=== PATIENT | male | born 1975 | race Caucasian/White ===

== ENCOUNTER 2023-04-12 02:11 | Emergency (ER) | payer OTHER, SELFPAY ==
[2023-04-12 02:12] VITALS: PULSE 74
[2023-04-12 02:16] VITALS: BP 155/84; PULSE 74; RESP 18; TEMP 36.8; O2SAT 99; BMI 33.5
--- NOTE | 2023-04-12 02:33 | CRLHL7_ITS ---
For Patients: As a result of the Century Cures Act, medical imaging exams and procedure reports are released immediately into your electronic medical record. You may view this report before your referring provider. If you have questions, please contact your health care provider. INDICATION: Posttraumatic swelling TECHNIQUE: Ultrasound venous duplex lower right extremity. Compression venous exam was performed using tapia-scale, color Doppler, and spectral Doppler analysis. COMPARISON: None. FINDINGS: Deep veins: Sonographic imaging demonstrates the right common femoral, deep femoral, superficial femoral, popliteal, posterior tibial and the contralateral left common femoral veins to be fully compressible with normal color Doppler blood flow. Superficial veins: Greater saphenous vein is fully compressible. No popliteal cyst. Medial right calf heterogenous superficial soft tissue collection without increased blood flow on color Doppler, most compatible hematoma, measuring 7.3 x 1.1 x 5 1 cm. This correlates with location patient was struck by softball. IMPRESSION: No sign of deep venous thrombosis. Right medial calf superficial soft tissue hematoma, as above. Dictated by Jeffery Soto MD @ 04/12/2023 4:28:04 AM (Electronically Signed)
[2023-04-12 03:54] VITALS: BP 148/87; PULSE 70; RESP 18; TEMP 36.8; O2SAT 99
[2023-04-12 03:55] VITALS: BP 148/87; PULSE 70; RESP 18; TEMP 36.8
--- NOTE | 2023-04-14 15:34 | ED_ITS ---
HPI - General Adult General Chief complaint: Extremity Pain/Injury, Lower Stated complaint: Got hit with softball last thursday R calf Time Seen by Provider: 04/12/23 02:12 History of Present Illness HPI narrative: CC: Right Calf Pain/Injury pt. got hit with softball about a week ago. some swelling noted. not on blood thiinners. 48-year-old man presenting to the emergency department with complaint of right calf pain and swelling all increasing along with bruising as well. Has concerns about a potential blood clot. Does not sound as though has been regularly elevating. Has continued to ambulate. No chest pain cough or shortness of breath. He was pitching and took batted ball off his lower leg. Has not been using compression. Related Data Home Medications Medication Instructions Recorded Confirmed No Known Home Medications 04/12/23 04/12/23 Allergies Allergy/AdvReac Type Severity Reaction Status Date / Time No Known Allergies Allergy Verified 04/12/23 02:18 Review of Systems Status of ROS: Reports: 6 or more systems reviewed and unremarkable except as noted in History and below [facility] Medical History Ulcerative colitis ?K51.90 - Ulcerative colitis, unspecified, without complications (ICD-10) Surgical History No significant past surgical history Social History Smoking Status: Never smoker Second hand tobacco smoke exposure: No How often do you have a drink containing alcohol: never How often do you have six or more drinks on one occasion: Never AUDIT-C Alcohol total score: 0 Non-prescribed substance use: denies use Exam Narrative: Exam Narrative: Pleasant. NAD. Breathing easily. Skin is warm and dry. Clearly with right lower extremity swelling and some pitting edema and generalized bruising that is extended down around the ankle as well. He is well-perfused peripherally. Tender to palpation in this area. Concentrated around the medial calf. Negative Homans though. Const: Documenting provider has reviewed patient's vital signs: yes Course Vital Signs Vital signs: Initial Vital Signs Pulse Rate 74 04/12/23 02:12 Vital Signs Pulse Rate 74 04/12/23 02:12 Temperature 98.2 F 04/12/23 03:55 Pulse Rate 70 04/12/23 03:55 Respiratory Rate 18 04/12/23 03:55 Blood Pressure 148/87 H 04/12/23 03:55 Pulse Oximetry 99 04/12/23 03:54 Oxygen Delivery Method Room Air 04/12/23 03:54 Medical Decision Making MDM Narrative Medical decision making narrative: I think there was primarily a mobilized hematoma at this point. Functionally well. I do not believe there is actually a deep venous thrombus here. I do not think it is though unreasonable to double check with ultrasound. I do not think there is a fracture here. Did discuss with commercial painter. Confirms absent DVT but with hematoma as expected. Dispensed Eagle wraps. See patient discharge plan. Discharge Plan Discharge Clinical Impression: Hematoma, Peripheral edema Patient Disposition: Home, Self-Care Condition: Stable Additional Instructions: I will call you if Radiology sees something else in the ultrasound that we needs discuss. Be sure to keep this leg nicely elevated at rest as discussed, at the level of your heart, a little above, if possible. Wear these Eagle wraps or other compression to help you more rapidly mobilize this fluid. Prescriptions: No Action No Known Home Medications Follow Up/Referrals: Provider,Not a Local [Primary Care Provider] - Stand Alone Forms: [employer] Info Instructions
== END 2023-04-12 03:55 | disposition home or self-care (01) ==
PROVIDERS: Emergency Provider Family Medicine
DX: S80.11XA Contusion of right lower leg, initial encounter (principal); R60.9 Edema, unspecified
CPT/HCPCS: 93971; 99284

== ENCOUNTER 2024-08-18 13:12 | Emergency (ER) | payer OTHER, SELFPAY ==
[2024-08-18 13:27] VITALS: BP 161/82; PULSE 90; RESP 18; TEMP 36.2; O2SAT 95; BMI 42.3
--- NOTE | 2024-08-18 13:46 | CRLHL7_ITS ---
For Patients: As a result of the Century Cures Act, medical imaging exams and procedure reports are released immediately into your electronic medical record. You may view this report before your referring provider. If you have questions, please contact your health care provider. INDICATION: Left lower quadrant pain COMPARISON: 12/18/2021 CT abdomen/pelvis TECHNIQUE: CT of the abdomen and pelvis with intravenous contrast (132 milliliters Isovue 370). FINDINGS: Lung bases: No pleural effusion. Liver: Smooth hepatic contour. No suspicious hepatic lesions are identified. Gallbladder and biliary tree: Cholelithiasis. Otherwise, unremarkable CT appearance of the gallbladder and biliary tree. Spleen: No splenomegaly. Pancreas: Normal. Adrenal glands: Normal. Kidneys and ureters: No hydroureteronephrosis. No suspicious renal lesions are identified. Bladder: Unremarkable CT appearance. Visualized reproductive organs: Unremarkable CT appearance. Gastrointestinal tract: Colonic diverticulosis. Focal colonic wall thickening and pericolonic fat stranding associated with a inflamed appearing diverticulum at the junction of the sigmoid and descending colon (2/122). No associated abscess. Peritoneal cavity: No free fluid or free air. Mild fat stranding within the central mesenteric fat is similar since at least as far back as 05/12/2020 and compatible with mesenteric panniculitis. Lymph nodes: No enlarged abdominal or pelvic lymph nodes by CT size criteria. Vessels: No abdominal aortic aneurysm. Mild aortic calcification. Abdominal and pelvic wall: Normal. Bones: There are osseous degenerative changes. Multiple old left-sided rib fractures. Chronic mild anterior vertebral body wedging in the inferior and mid thoracic spine. IMPRESSION: 1. Acute uncomplicated diverticulitis at the junction of the sigmoid and descending colon. 2. Several additional chronic and incidental findings are detailed above. Please note that all CT scans at this facility use dose modulation, iterative reconstruction, and/or weight-based dosing when appropriate to reduce radiation dose to as low as reasonably achievable. Dictated by Frank Kumar MD @ 08/18/2024 3:36:32 PM (Electronically Signed)
--- NOTE | 2024-08-18 14:15 | ED_ITS ---
HPI - Abdominal Pain General Date Seen: 08/18/24 Chief Complaint: Abdominal Pain Stated Complaint: lower abdomen pain Time Seen by Provider: 08/18/24 13:38 Source: patient Mode of arrival: ambulatory Limitations: no limitations History of Present Illness HPI narrative: Patient is a 49-year-old male presenting for left lower quadrant abdominal pain. He states symptoms started yesterday ready acutely below he was putting together some stuff for his daughter's [place]. States there was no heavy lifting involved. Describes the pain is dull in sensation but becomes sharp when he presses on it. Is unable to lie on his left side due to the pain. Symptoms do improve when he would roll over onto his right side. Denies having pain like this before. Has a history of chronic colitis since the age of 21 and has had multiple colonoscopies. Most recent was 4 years ago. Was never told he has diverticulosis that he is aware of. Currently gets colonoscopy every 5 years. Denies any diarrhea or constipation states his bowel movement this morning was normal. There was some blood in his stool but states that is normal for him due to his most will previous anal Khan since fistula states needed surgery on. He has had no other internal abdominal surgeries. Denies nausea, vomiting, chest pain, shortness of breath, dysuria, lightheadedness, dizziness, fevers, chills. Has been eating and drinking without issue since symptoms started. Related Data Previous Rx's ?Medication ?Instructions ?Recorded amoxicillin 875 mg-potassium 1 tab PO TID #15 tabs 08/18/24 clavulanate 125 mg tablet Allergies Allergy/AdvReac Type Severity Reaction Status Date / Time No Known Allergies Allergy Verified 08/18/24 13:32 Review of Systems Status of ROS Reports: 10 or more systems reviewed and unremarkable except as noted in History and below PFSH [facility] Medical History Ulcerative colitis ?K51.90 - Ulcerative colitis, unspecified, without complications (ICD-10) Surgical History No significant past surgical history Social History Smoking Status: Never smoker Second hand tobacco smoke exposure: No How often do you have a drink containing alcohol: never How often do you have six or more drinks on one occasion: Never AUDIT-C Alcohol total score: 0 Non-prescribed substance use: denies use Exam Narrative: Exam Narrative: Const: Well-nourished, Well-developed, in mild distress Eyes: PERRL, no conjunctival injection, and symmetrical lids HENT: Atraumatic external nose and ears. Moist mucous membranes. Neck: Symmetric, trachea midline, No thyromegaly. CVS: RRR, No murmurs or gallops. Peripheral pulses 2+ and equal in all extremities RESP: Unlabored respiratory effort. Clear to auscultation bilaterally. GI: Tenderness to palpation left lower quadrant. Nondistended, No rebound or g uarding. No CVA tenderness MSK:Extremities w/o deformity, Normal Active ROM Skin: Warm, Dry. No rashes or lesions. Neuro: Normal Muscle tone, No focal neurological deficits. Psych: Awake, Alert, & Oriented x3. Appropriate mood and affect. Const: Vital Signs, click to edit/add: Vital Signs - 24 hr 08/18/24 13:27 Temperature 97.2 F L Pulse Rate [Right Pulse Oximeter] 90 Respiratory Rate 18 Blood Pressure [Ri ght Upper Arm] 161/82 H Pulse Oximetry 95 Oxygen Delivery Me thod Room Air Course Vital Signs Vital signs: Initial Vital Signs Temperature 97.2 F L 08/18/24 13:27 Temperature Source Temporal Artery Scan 08/18/24 13:27 Pulse Rate 90 08/18/24 13:27 Pulse Rhythm Regular 08/18/24 13:27 Pulse Strength 3+ Normal 08/18/24 13:27 Respiratory Rate 18 08/18/24 13:27 Blood Pressure 161/82 H 08/18/24 13:27 Blood Pressure Mean 108 H 08/18/24 13:27 Blood Pressure Position Sitting 08/18/24 13:27 Pulse Oximetry 95 08/18/24 13:27 Oxygen Delivery Method Room Air 08/18/24 13:27 Vital Signs Temperature 97.2 F L 08/18/24 13:27 Pulse Rate 90 08/18/24 13:27 Respiratory Rate 18 08/18/24 13:27 Blood Pressure 161/82 H 08/18/24 13:27 Pulse Oximetry 95 08/18/24 13:27 Oxygen Delivery Method Room Air 08/18/24 13:27 Temperature 97.2 F L 08/18/24 13:27 Pulse Rate 90 08/18/24 13:27 Respiratory Rate 18 08/18/24 13:27 Blood Pressure 161/82 H 08/18/24 13:27 Pulse Oximetry 95 08/18/24 13:27 Oxygen Delivery Method Room Air 08/18/24 13:27 MDM - Abdominal Pain MDM Narrative Medical decision making narrative: Patient is a 49-year-old male presenting for left lower quadrant abdominal pain. This time differential includes diverticulitis, hernia, colitis, constipation. No previous intra abdominal surgery SBO seems unlikely. Due to the location appendicitis, gallbladder/liver disease, pancreatitis seems less likely. Could possibly be related to nephrolithiasis but less likely considering description of pain. Will do a CBC, CMP, urinalysis, CT scan of the abdomen pelvis with contrast. Patient declined any pain or nausea medicine at this time. Lab work returned showing no concerning abnormalities. CT scan reviewed by myself and the radiologist show signs of uncomplicated diverticulitis. His symptoms are manageable at this time. Returns showing antibiotics do not improve outcomes and I spoke to the patient about this. Considering this the plan is to not start any antibiotics unless symptoms start progressing. He is agreeable to this plan. I will give him a script of Augmentin for him to leaf size picker if symptoms are getting worse over the next few days. Lab Data Labs: Lab Results 08/18/24 Range/Units 14:27 WBC 11.14 H (4.50-11.00) K/uL RBC 5.24 (4.30-5.90) m/uL Hgb 14.9 (13.5-17.5) gm/dL Hct 45.3 (37.0-53.0) % MCV 87 (80-100) fL MCH 28 (26-34) pg MCHC 33 (32-36) gm/dL RDW Coeff of Glenn 13.0 (11.5-15.5) % Plt Count 221 (140-440) K/uL Neut % (Auto) 77.2 H (42.0-72.0) % Lymph % (Auto) 11.0 L (20-44) % [place] % (Auto) 7.2 (0.0-11.0) % Eos % (Auto) 4.0 (0.0-7.0) % Baso % (Auto) 0.4 (0.0-3.0) % Neut # (Auto) 8.60 H (1.7-7.0) K/uL Lymph # (Auto) 1.20 (0.90-2.90) K/uL [place] # (Auto) 0.80 (0.00-0.90) K/UL Eos # (Auto) 0.40 (0.00-0.50) K/uL Baso # (Auto) 0.00 (0.00-0.30) K/uL Abs Immat Gran (auto) 0.00 (0.00-0.30) K/uL Imm/Tot Granulo (auto) 0.2 % Sodium 138 (135-149) mmol/L Potassium 3.9 (3.6-5.1) mmol/L Chloride 105 (96-114) mmol/L Carbon Dioxide 27 (20-32) mmol/L Anion Gap 6 L (7-15) mEq/L BUN 16 (5-24) mg/dL Creatinine 0.8 (0.5-1.5) mg/dL Estimated Creat Clear 106.72 Estimated GFR 110 ml/min Glucose 97 (60-115) mg/dL Calcium 9.0 (8.4-10.6) mg/dL Total Bilirubin 0.4 (0.1-1.5) mg/dL AST 16 (12-35) U/L ALT 28 (4-50) U/L Alkaline Phosphatase 58 (40-150) U/L Total Protein 6.8 (6.0-8.3) g/dL Albumin 4.1 (3.3-5.0) g/dL Imaging Data CT scan abdomen pelvis: Attestation: I have reviewed the pertinent imaging results. Radiologist's impression: 1. Acute uncomplicated diverticulitis at the junction of the sigmoid and descending colon. 2. Several additional chronic and incidental findings are detailed above. Please note that all CT scans at this facility use dose modulation, iterative reconstruction, and/or weight-based dosing when appropriate to reduce radiation dose to as low as reasonably achievable. Dictated by Frank Kumar MD @ 08/18/2024 3:36:32 PM Discharge Plan Discharge Clinical Impression: Diverticulitis Patient Disposition: Home, Self-Care Condition: Stable Instructions: Diverticulitis (ED), Clear Liquid Diet (ED) Additional Instructions: Take Tylenol and ibuprofen for pain. You have diverticulitis and antibiotics have not been shown to improve uncomplicated diverticulitis. Antibiotics to increase her risk of developing C diff. Try to drink clear liquids for the next couple days to help with your symptoms. If over the next couple days symptoms are not improving or worsening he can leaf size picker the Augmentin prescription. Return to emergency department for new or worsening symptoms. Prescriptions: New amoxicillin-pot clavulanate 875-125 mg tablet 1 tab PO TID Qty: 15 0RF Follow Up/Referrals: Provider,Not a Local [Primary Care Provider] - Stand Alone Forms: [employer] Info Instructions
[2024-08-18 14:36] LABS: Basophils Percent Auto 0.4 % (0.0-3.0); Hematocrit 45.3 % (37.0-53.0); Hemoglobin* 14.9 gm/dL (13.5-17.5); Immature Granulocytes Pct Auto 0.2 %; Mean Corpuscular HGB Conc 33 gm/dL (32-36); Mean Corpuscular Hemoglobin 28 pg (26-34); Mean Corpuscular Volume 87 fL (80-100); Monocytes Percent Auto 7.2 % (0.0-11.0); Neutrophils Percent Auto 77.2 % (42.0-72.0); Platelet Count* 221 K/uL (140-440); Red Blood Count 5.24 m/uL (4.30-5.90); White Blood Count* 11.14 K/uL (4.50-11.00)
[2024-08-18 14:38] LABS: Slide Review Reflex No
[2024-08-18 14:49] LABS: Albumin* 4.1 g/dL (3.3-5.0); Chloride* 105 mmol/L (96-114)
[2024-08-18 14:50] LABS: Potassium* 3.9 mmol/L (3.6-5.1); Sodium* 138 mmol/L (135-149)
[2024-08-18 14:52] LABS: Alkaline Phosphatase* 58 U/L (40-150); Anion Gap 6 mEq/L (7-15); Aspartate Amino Transferase* 16 U/L (12-35); Bilirubin Total* 0.4 mg/dL (0.1-1.5); Blood Urea Nitrogen* 16 mg/dL (5-24); Carbon Dioxide* 27 mmol/L (20-32); Creatinine* 0.8 mg/dL (0.5-1.5); Est. Creatinine Clearance* 106.72; Estimated Glomerular Filt Rate 110 ml/min; Total Protein* 6.8 g/dL (6.0-8.3)
[2024-08-18 14:53] LABS: Alanine Aminotransferase* 28 U/L (4-50); Glucose* 97 mg/dL (60-115)
== END 2024-08-18 16:04 | disposition home or self-care (01) ==
PROVIDERS: Emergency Provider Student in an Organized Health Care Education/Training Program
DX: K57.92 Diverticulitis of intestine, part unspecified, without perforation or abscess without bleeding (principal)
CPT/HCPCS: 36415; 74177; 80053; 81001; 85025; 99284; 99285; Q9967

== ENCOUNTER 2024-11-03 09:03 | Emergency (ER) | payer OTHER, SELFPAY ==
--- OUTSIDE RECORDS SUMMARY | 2024-11-03 09:06 | XMS_ITS | Clinical Summary ---
Author Organization [facility] Address [address] [place] [id number] Care Team Providers Care Catalyst Concentration Operator Name Role Phone Pcp, No Primary Care Provider Unavailabl e Allergies No known active allergies Medications polyethylene glycol-electroly te (GOLYTELY) 236-22.74-6.74 -5.86 gram suspensionIndica tions:Encounter for screening colonoscopy Drink 3 liters (3/4 of bottle) the day prior to colonoscopy and 1 liter (remaining 1/4 bottle) 6 hours prior to colonoscopy appointment. 4000 mL 2 Active Active Problems Problem Noted Date Diagnosed Date Adenomatous colon polyp 04/16/2017 Overview (04/17/2022): Colonoscopy 03/2017 polyp repeat in 5 years Colonoscopy 03/2022 normal, repeat in 7 years Encounters Date Type Department Care Team Description 08/18/2024 Nurse Triage [facility] Centralized Nurse Triage Pcp, No Abdominal Pain from Last 3 Months Immunizations Immunization Administration Dates Next Due Influenza, IIV3 (Age >=3 years) 05/27/2011 Influenza, IIV4 04/25/2020,05/06/2016,06/01/2015 Tdap 05/05/2012 Social History Tobacco Use Types Packs/Day Years Used Date Smoking Tobacco: Never Smokeless Tobacco: Never Tobacco Cessation:Counseling Given: Yes Alcohol Use Standard Drinks/Week Comments No 0 (1 standard drink = 0.6 oz pur e alcohol) occ PHQ-2 Answer Date Recorded PHQ-2 TOTAL SCORE 0 04/25/2020 Social Connections Answer Date Recorded Frequency of Communication with Friends and Fami ly Not on file 03/08/2024 Financial Resource Strain Answer Date R ecorded Difficulty of Paying Living Expenses Not on file 08/24/2021 Difficulty of Paying Living Expenses Not on file 08/24/2021 Sex and Gender Information Value Date Recorded Sex Assigned at Male 05/22/2020 9:56 AM CDT Legal Sex Male 5:41 AM PATHOLOGY TECHNOLOGIST Gender Identity Male 05/22/2020 9:56 AM CDT Sexual Orientation Straight 05/22/2020 9: 56 AM CDT Obstetrics History Last Filed Vital Signs Vital Sign Reading Time Taken Comments Blood Pressure 143/87 05/23/2020 9:30 AM CDT Pulse 69 05/23/2020 9:30 AM CDT Temperature 36.7 C (98.1 F) 04/25/2020 9:45 AM CDT Respiratory Rate 20 05/23/2020 9:30 AM CDT Oxygen Saturation 99% 05/23/2020 9:3 0 AM CDT Inhaled Oxygen Concentration - - Weight 117.2 kg (258 lb 6.4 oz) 05/23/2020 9:30 AM CDT Pt weighed with shoes on. Height 170.2 cm (5' 7) 04/25/2020 9:45 AM CDT Body Mass Index 40.47 04/25/2020 9:45 AM CDT Plan of Treatment Health Maintenance Due Date Last Done Comments HIV for age 15-65 1992 Hepatitis C screening for age 18-79 1995 BMI (ht and wt on same day) for age 18+ 04/25/2021 04/25/2020, 08/11/2017, 08/04/2017, Additional history exists Depression screening for age 12+ 04/25/2021 04/25/2020, 08/04/2017 Lipids for age 45-75 2022 08/14/2015 Tetanus booster 05/05/2022 05/05/2012 COVID-19 vaccine series ( season) 2024 08/07/2021, 10/31/2020, 10/03/2020 Influenza Vaccine (#1) 2024 , 05/06/2016, 06/01/2015, Additional history exists Colonoscopy through age 75 04/17/202904/17, 04/17/2022, 04/17/2022, Additional history exists Tdap Completed 05/05/2012 Pneumococcal series for age 6-49 Aged Out No longer eligible based on patient's age to complete this topic Procedures Procedure Name Priority Date/Time Associated Diagnosis Comments COLONOSCOPY SCREENING Routine 04/17/2022 7:30 AM CDT History of colon polyps LIPID PANEL W REFLEX MEASURED LDL Routine 08/14/2015 8:03 AM PATHOLOGY TECHNOLOGIST Screening for hyperlipidemia from Last 3 Months or Most Recently Relevant to Health Maintenance Results * COLONOSCOPY (04/17/2022 7:57 AM CDT) 04/17/2022 7:57 AM CDT Narrative Transcriptions Castro Fuentes MD - 04/17/2022 8:31 AM CDT Patient Name: Ned Saleem Procedure Date: 04/17/2022 Gender: Male Date of : 1975 Admit Type: Outpatient Procedure: Colonoscopy Proceduralist: Castro Fuentes MD , Roberta Bartholomew (Nurse), Phoebe Braden (Nurse) Referring MD: Castro Fuentes Indications/Pre-Op Diagnosis: High risk colon cancer surveillance:Personal history of adenoma less than 10 mm in size, Last colonoscopy: March 2017 Medications: Fentanyl 100 micrograms IV, Midazolam 3 mgIV, The level of sedation administered wasmoderate Procedure Description: The patient had risks, benefits and alternatives explained to andgave informed consent. The patient had a stable cardiopulmonary status and judged an adequate candidate for conscious sedation. The Colonoscope was passed through the anus and advanced to thececum, identified by appendiceal orifice and ileocecal valve. Thecolonoscopy was performed without difficulty. The patient tolerated the procedure well. The quality of the bowel preparation was good. The ileocecal valve, appendiceal orifice, and rectum were photographed. Complications: No immediate complications. Estimated Blood Loss & Specimen: Estimated blood loss: none. Specimen collected - None Findings: The perianal and digital rectal examinations were normal. The entire examined colon appeared normal. Impressions/Post-Op Diagnosis: - The entire examined colon is normal. - No specimens collected. Recommendation: - Patient has a contact number available for emergencies. The signsand symptoms of potential delayed complications were discussed with the patient. Return to normal activities tomorrow. Written discharge instructions were provided to the patient. - Resume previous diet. - Continue present medications. - Repeat colonoscopy in 7 years for surveillance. Moderate Sedation: Moderate (conscious) sedation was administered by the endoscopy nurse and supervised by the endoscopist. The following parameters were monitored: oxygen saturation, heart rate, respiratory rate, blood pressure, adequacy of pulmonary ventilation and reponse to care. Please refer to the patient's medical record flowsheets and nursing notes for moderate sedation details. Total physician intraservice time was 18 minutes. Castro Fuentes MD 04/17/2022 8:31:48 AM This report has been signed electronically. Note Initiated On: 04/17/2022 7:57 AM Procedure Code(s): --- Professional --- 00250, Colonoscopy, flexible; diagnostic, including collection of specimen(s) bybrushing or washing, when performed (separateprocedure) Diagnosis Code(s): --- Professional --- Z86.010, Personal history of colonicpolyps CPT copyright 2020 [employer]. All rights reserved. The codes documented in this report are preliminary and upon professional fee coder reviewmay be revised to meet current compliance requirements. Scope In: 8:09:48 AM Scope Withdrawal Time 0 hours 9 minutes 22 seconds Scope Out: 8:24:08 AM us Castro Fuentes MD PROCEDURE ORD Final Res ult * (ABNORMAL) LIPID PANEL W REFLEX MEASURED LDL (08/14/2015 8:03 AM PATHOLOGY TECHNOLOGIST) CHOLESTEROL,TOTAL 194 100 - 199 mg/dL 08/14/2015 8:50 AM PATHOLOGY TECHNOLOGIST [facility] TRIGLYCERIDES 150(H) <150 mg/dL 08/14/2015 8:50 AM PATHOLOGY TECHNOLOGIST [facility] HDL CHOLESTEROL 37(L) >40 mg/dL 08/14/2015 8:50 AM PATHOLOGY TECHNOLOGIST [facility] NON-HDL CHOLESTEROL 157(H) <145 mg/dl 08/14/2015 8:50 AM PATHOLOGY TECHNOLOGIST [facility] CHOL/HDL RATIO 5.24(H) <4.50 08/14/2015 8:50 AM PATHOLOGY TECHNOLOGIST [facility] LDL CHOLESTEROL 127 <=130 mg/dL 08/14/2015 8:50 AM PATHOLOGY TECHNOLOGIST [facility] PATIENT STATUS FASTING 08/14/2015 8:50 AM PATHOLOGY TECHNOLOGIST [facility] Blood specimen (specimen) BLOOD SPECIMEN / Unknown Venipuncture / Unknown 08/14/2015 8:03 AM PATHOLOGY TECHNOLOGIST 08/14/2015 8:03 AM PATHOLOGY TECHNOLOGIST Diana Barry MD CHEMISTRY Nancy l Result Performing Organization Address [facility]/State/[facility] Co de Phone Number [facility] [address] [place] [address], from Last 3 Months or Most Recently Relevant to Health Maintenance Insurance [place] [employer] [place] [id number] Advance Directives * Full Code (Latest Code Status on File) Date Activated Date Inactivated Comments 03/02/2008 4:38 PM 03/03/2008 12:26 PM Care Teams Catalyst Concentration Operator Relationship Specialty Start Date End Date Pcp, No . PCP - General 07/22/11
[2024-11-03 09:14] VITALS: BP 161/91; PULSE 77; RESP 20; TEMP 36.8; O2SAT 96; BMI 44.8
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
[2024-11-03 11:08] VITALS: BP 150/100; PULSE 77; RESP 20; O2SAT 95
--- OUTSIDE RECORDS SUMMARY | 2024-11-03 11:18 | XMS_ITS | Clinical Summary ---
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 All rights reserved. The codes documented in this report are preliminary and upon shorthand teacher reviewmay be revised to meet current compliance requirements. Scope In: 8:09:48 AM Scope Withdrawal Time 0 hours 9 minutes 22 seconds Scope Out: 8:24:08 AM us Castro Fuentes MD PROCEDURE ORD Final Res ult * (ABNORMAL) LIPID PANEL W REFLEX MEASURED LDL (08/14/2015 8:03 AM GENERAL ASSEMBLER INSTALLER) CHOLESTEROL,TOTAL 194 100 - 199 mg/dL 08/14/2015 8:50 AM GENERAL ASSEMBLER INSTALLER [facility] TRIGLYCERIDES 150(H) <150 mg/dL 08/14/2015 8:50 AM GENERAL ASSEM[employer]ER INSTALLER [facility] HDL CHOLESTEROL 37(L) >40 mg/dL 08/14/2015 8:50 AM GENERAL ASSEM[employer]ER INSTALLER [facility] NON-HDL CHOLESTEROL 157(H) <145 mg/dl 08/14/2015 8:50 AM GENERAL ASSEM[employer]ER INSTALLER [facility] CHOL/HDL RATIO 5.24(H) <4.50 08/14/2015 8:50 AM GENERAL ASSEM[employer]ER INSTALLER [facility] LDL CHOLESTEROL 127 <=130 mg/dL 08/14/2015 8:50 AM GENERAL ASSEMBLER INSTALLER [facility] PATIENT STATUS FASTING 08/14/2015 8:50 AM GENERAL ASSEM[employer]ER INSTALLER [facility] Blood specimen (specimen) BLOOD SPECIMEN / Unknown Venipuncture / Unknown 08/14/2015 8:03 AM GENERAL ASSEMBLER INSTALLER 08/14/2015 8:03 AM GENERAL ASSEMBLER INSTALLER Diana Barry MD CHEMISTRY Nancy l Result Performing Organization Address [facility] Co de Phone Number [facility] [address] [place] [address], from Last 3 Months or Most Recently Relevant to Health Maintenance Insurance [employer] [id number] Advance Directives * Full Code (Latest Code Status on File) Date Activated Date Inactivated Comments 03/02/2008 4:38 PM 03/03/2008 12:26 PM Care Teams Raised Printer Relationship Specialty Start Date End Date Pcp, No . PCP - General 07/22/11
== END 2024-11-03 11:37 | disposition home or self-care (01) ==
LOC: ED 11:17
PROVIDERS: Emergency Provider Emergency Medicine Emergency Medical Services
DX: S62.357A Nondisplaced fracture of shaft of fifth metacarpal bone, left hand, initial encounter for closed fracture (principal); V73.5XXA Driver of bus injured in collision with car, pick-up truck or van in traffic accident, initial encounter
CPT/HCPCS: 29125; 73130; 99283; 99284

== ENCOUNTER 2024-12-27 08:15 | Outpatient (RCR) | payer OTHER, SELFPAY | END 2025-04-26 23:59 | disposition home or self-care (01) | PROVIDERS: Visit Provider Orthopaedic Surgery Sports Medicine | DX: S62.307D Unspecified fracture of fifth metacarpal bone, left hand, subsequent encounter for fracture with routine healing (principal); Z02.6 Encounter for examination for insurance purposes; Z51.89 Encounter for other specified aftercare | CPT/HCPCS: 97110; 97140; 97165; L3808; X5282 ==